=== PATIENT | female | born 1990 | race Hispanic/Latino ===

== ENCOUNTER 2017-10-18 02:30 | Inpatient (IN) | payer MEDICAID, SELFPAY ==
[2017-10-18] MEDS ORDERED: Ondansetron HCl/PF 4 MG/2 ML Vial ONE (03:58)
[2017-10-18 04:14] LABS: Hemoglobin 15.5 g/dL (12.0-16.0); Mean Corpuscular HGB CONC 33.8 g/dL (32.0-36.0); Mean Corpuscular Hemoglobin 31.8 pg (27.0-31.0); Mean Corpuscular Volume 94.1 fl (81.0-99.0); Mean Platelet Volume 8.8 fL (7.4-10.4); Platelet Count 270 thou/uL (130-400); RBC Distribution Width 11.2 % (11.5-14.5); Red Blood Cell (RBC) Count 4.88 mill/uL (4.20-5.40); White Blood Cell (WBC) Count 21.1 thou/uL (4.8-10.8)
[2017-10-18 04:29] LABS: ALT (SGPT) 25 U/L (8-55); AST (SGOT) 15 U/L (5-34); Alkaline Phosphatase 54 U/L (40-150); Anion Gap 15 mmol/L (10-20); BUN (Urea Nitrogen) 12 mg/dL (7.0-18.7); Band 15 % (5-11); Bilirubin, Total 1.3 mg/dL (0.2-1.2); CK (CPK) 63 U/L (29-168); Calc. Creatinine Clearance 0 mL/min (70-130); Calcium 10.1 mg/dL (7.8-10.44); Carbon Dioxide 26 mmol/L (22-29); Chloride 99 mmol/L (98-107); Estimated GFR-MDRD 89; Glucose 118 mg/dL (70-105); Lipase 8 U/L (8-78); Lymphocytes 2 % (21-51); MDiff Complete? YES; Monocytes 2 % (0-10); Neutrophil 81 % (42-75); Potassium 3.5 mmol/L (3.5-5.1); Sodium 136 mmol/L (136-145)
[2017-10-18 04:43] LABS: Bilirubin Negative (Negative); Blood, Urine Negative (Negative); Clarity CLEAR (Clear); Glucose, Urine (Dipstick) Negative (Negative); Leukocyte Negative (Negative); Nitrite Negative (Negative); Protein, Urine (Dipstick) 30 mg/dL (Neg-Trace); Specific Gravity, Urine 1.022 (1.002-1.036); pH, Urine 8.5 (5.0-9.0)
[2017-10-18 04:45] LABS: Pregnancy Test - Urine (BHCG) Negative (Negative); Pregu Control Background? CLEAR/WHITE (CLR/WHITE); Pregu Control Bar Appear? YES (CONTROL BAR); Specific Gravity 1.022 (1.002-1.036)
[2017-10-18 04:46] LABS: Bacteria/HPF Rare-Few HPF (None Seen); Hyaline Casts/LPF 0-3 HYALINE CAST LPF (0-3 Hyaline); RBC/HPF 0-3 HPF (0-3); Squamous Epithelial 0-3 HPF (0-3); WBC/HPF 0-3 HPF (0-3)
[2017-10-18] MEDS ORDERED: Acetaminophen 325 MG TAB ONE (07:10)
--- NOTE | 2017-10-18 08:06 | RAD ---
PORTABLE CHEST 1 VIEW: Date: 10/18/17 Time: 0346 hours HISTORY: Cough. FINDINGS: The heart size is normal. The lungs are expanded without focal areas of consolidation, pneumothorax, or pleural effusions. IMPRESSION: No acute process. POS: [facility]
[2017-10-18] MEDS ORDERED: Ondansetron ODT 4 MG TAB SL PRN (09:29)
[2017-10-18] MEDS ORDERED: Acetaminophen 325 MG TAB PO PRN (09:29)
[2017-10-18] MEDS ORDERED: Ondansetron HCl/PF 4 MG/2 ML Vial IVP PRN ×2 (09:29→11:33)
[2017-10-18 11:33] VITALS: BMI 23.6
[2017-10-18] MEDS ORDERED: Bisacodyl 5 MG TAB PO PRN (11:33)
[2017-10-18] MEDS ORDERED: Acetaminophen 650 MG Suppository PR PRN (11:33)
[2017-10-18] MEDS ORDERED: cefTRIAXone\\ROCEPHIN 1 GM in Sodium Chloride 0.9% 100 ML IVPB SCH (11:45)
--- NOTE | 2017-10-18 11:59 | HP ---
PRIMARY CARE PROVIDER: [facility]. CHIEF COMPLAINT: Body aches and fatigue. HISTORY OF PRESENT ILLNESS: Ms. Rosa is a pleasant 27-year-old lady who was seen at [facility] on 10/18/2017. She reports that she was doing well until yesterday. She denies any sick contacts. Yesterday, she started having body aches as well as a headache. She also report s feeling generalized weakness. She is unsure if she had fever. She reports occasional cough that i s nonproductive. She also reports that she has had multiple episodes of vomiting yesterday. Vomitin g resolved after she came to the emergency room. She has been unable to have any oral intake seconda ry to vomiting. She denies any dysuria or increased frequency of urination. She denies any abdomina l pain. REVIEW OF SYSTEMS: The following complete review of systems was negative, unless otherwise mentioned in the HPI or below: Constitutional: Weight loss or gain, ability to conduct usual activities. Skin: Rash, itching. Eyes: Double vision, pain. ENT/Mouth: Nose bleeding, neck stiffness, pain, tenderness. Cardiovascular: Palpitations, dyspnea on exertion, orthopnea. Respiratory: Shortness of breath, wheezing, cough, hemoptysis, fever or night sweats. Gastrointestinal: Poor appetite, abdominal pain, heartburn, nausea, vomiting, constipation, or diarr hea. Genitourinary: Urgency, frequency, dysuria, nocturia. Musculoskeletal: Pain, swelling. Neurologic/Psychiatric: Anxiety, depression. Allergy/Immunologic: Skin rash, bleeding tendency. MEDICAL HISTORY: None. SURGICAL HISTORY: None. SOCIAL HISTORY: Patient denies tobacco use, alcohol use or recreational drug use. FAMILY HISTORY: No family history of coronary artery disease. ALLERGIES: No known drug allergies. CURRENT MEDICATIONS: None. PHYSICAL EXAMINATION: GENERAL: On examination, Ms. Rosa is awake and alert, not in acute distress. VITAL SIGNS: Blood pressure is 110/75, pulse is 111. She is breathing at rate of 17 and saturating 98% on room air. Her T-max in the emergency room was 101.4 degrees Fahrenheit. EYES: No scleral icterus. No conjunctival pallor. ENT: Dry mucosal membranes, no oropharyngeal erythema or exudates. NECK: Supple, nontender, normal range of movement. Trachea is midline. RESPIRATORY: Accessory muscles of breathing are not active. Chest wall movements are symmetrical bi laterally. LUNGS: Clear to auscultation without wheeze, rhonchi or crepitations. CARDIOVASCULAR: S1 and S2 are heard, tachycardic and regular. Peripheral pulses are palpable. No c arotid bruit, no pericardial rub. ABDOMEN: Soft, nontender, bowel sounds are heard, no hepatomegaly, no splenomegaly. NEUROLOGIC: Cranial nerves II-XII are intact. Deep tendon reflexes are 2+. MUSCULOSKELETAL: Power is 5/5 in all 4 extremities. Normal range of movement at all major extremity joints. SKIN: No rashes or subcutaneous nodules. LYMPHATIC: No cervical lymphadenopathy. PSYCHIATRIC: Normal mood, normal affect, patient is oriented to person, place, and time. IMAGING DATA AND LABORATORY DATA: Ms. Rosa's labs and investigations were reviewed. I reviewed h er electrocardiogram, which shows sinus tachycardia, no ST changes to suggest an acute coronary syndr ome. I also reviewed her chest x-ray, which does not show any pulmonary infiltrates. She has leukoc ytosis with 21,000 white cells, of which 81% are neutrophils and 15% are bands, normal hemoglobin, no rmal platelet count, elevated total bilirubin of 1.3, otherwise unremarkable comprehensive metabolic profile, normal TSH, normal lipase and urinalysis that is positive for protein and trace ketones. ASSESSMENT AND PLAN: Ms. Rosa is a pleasant 27-year-old lady who was seen at [facility] on 10/18/2017. Her problem list includes: 1. Sepsis: She presents with findings consistent with sepsis, likely secondary to an upper respirat ory tract infection, although flu-like illness causing nausea and vomiting cannot be ruled out at thi s time. I should note that her influenza screen is negative. She will be admitted to the hospital f or further management. Blood cultures are pending at this time. I will start her on empiric antibio tics in the form of ceftriaxone and follow cultures. 2. Dehydration: The patient is clinically dehydrated, likely secondary to vomiting. We will provid e intravenous hydration. 3. Abnormal liver function test: Isolated mild elevation of total bilirubin. We will recheck liver function tests. 4. Generalized weakness: Likely secondary to dehydration. We will provide hydration and reassess. Many thanks for allowing me to participate in your patient's care. Please feel free to contact me wi th any questions or concerns. LEVEL OF RISK: High. LEVEL OF COMPLEXITY: High.
[2017-10-18] MEDS: Sodium Chloride 0.9% 1,000 ML IV SCH ×2 (14:03→21:43)
[2017-10-18] MEDS: cefTRIAXone\\ROCEPHIN 1 GM, Syringe 0.4 ML in Sterile Water 9.6 ML SLOW IVP SCH (14:04)
[2017-10-18] MEDS: Acetaminophen 325 MG TAB PO PRN (14:17)
[2017-10-19] MEDS: Acetaminophen 325 MG TAB PO PRN (00:04)
[2017-10-19 04:50] LABS: #Lymphocytes 1.3 thou/uL (1.20-3.40); #Monocytes 0.7 thou/uL (0.11-0.59); #Neutrophils 7.8 thou/uL (1.40-6.50); %Basophils 0.1 % (0.0-1.0); %Eosinophils 0.5 % (0.0-10.0); %Lymphocytes 13.5 % (21.0-51.0); %Monocytes 7.1 % (0.0-10.0); %Neutrophils 78.8 % (42.0-75.0); Hemoglobin 12.5 g/dL (12.0-16.0); Mean Corpuscular Hemoglobin 32.6 pg (27.0-31.0); Mean Corpuscular Volume 95.9 fl (81.0-99.0); Mean Platelet Volume 8.7 fL (7.4-10.4); Platelet Count 209 thou/uL (130-400); RBC Distribution Width 11.3 % (11.5-14.5); Red Blood Cell (RBC) Count 3.83 mill/uL (4.20-5.40); White Blood Cell (WBC) Count 9.9 thou/uL (4.8-10.8)
[2017-10-19 06:20] LABS: ALT (SGPT) 19 U/L (8-55); AST (SGOT) 15 U/L (5-34); Albumin 3.3 g/dL (3.5-5.0); Alkaline Phosphatase 38 U/L (40-150); Anion Gap 6 mmol/L (10-20); BUN (Urea Nitrogen) 6 mg/dL (7.0-18.7); Bilirubin, Direct 0.2 mg/dL (0.1-0.3); Bilirubin, Total 0.4 mg/dL (0.2-1.2); Calc. Creatinine Clearance 118 mL/min (70-130); Calcium 8.3 mg/dL (7.8-10.44); Carbon Dioxide 27 mmol/L (22-29); Chloride 109 mmol/L (98-107); Estimated GFR-MDRD Greater than 90; Glucose 89 mg/dL (70-105); Potassium 4.1 mmol/L (3.5-5.1); Sodium 138 mmol/L (136-145)
[2017-10-19] MEDS: Enoxaparin Sodium 40 MG/0.4 ML SYRINGE SC SCH (08:29)
[2017-10-19] MEDS: Sodium Chloride 0.9% 1,000 ML IV SCH ×2 (08:35→17:46)
[2017-10-19] MEDS ORDERED: FLU VACC QS2017-18 36 mo. & older 0.5 ML SYRINGE IM ONE (09:00)
[2017-10-19] MEDS: cefTRIAXone\\ROCEPHIN 1 GM, Syringe 0.4 ML in Sterile Water 9.6 ML SLOW IVP SCH (14:01)
--- NOTE | 2017-10-19 15:47 | PDOC.PN ---
- Subjective Encounter Start Date: 10/19/17 Encounter Start Time: 15:45 CC: Fever sub: pt denies dyspnea - Objective Vital Signs & Weight: Vital Signs (12 hours) Temp Pulse Resp BP Pulse Ox 10/19/17 11:42 98.2 F 94 16 104/69 98 10/19/17 08:11 98.1 F 89 16 111/73 97 10/19/17 08:00 98.1 F 89 16 97 10/19/17 04:00 97.6 F 80 16 103/72 99 Result Diagrams: 10/19/17 04:13 10/19/17 04:13 Phys Exam - Physical Examination Constitutional: NAD HEENT: moist MMs Neck: no JVD Respiratory: no wheezing, no rales, no rhonchi Cardiovascular: RRR, no significant murmur, no rub Gastrointestinal: soft, non-tender, no distention Musculoskeletal: no edema Psychiatric: normal affect Skin: no rash Dx/Plan - Plan Pt is 27 yrs old female 1. Sepsis 2. Fever resolved 3. Weakness 4. Hypovolemia Plan: 1. Continue IV rocephin. WBC count improved Repeat CBC in am 2. Cultures no growth so far. Monitor for now 3. Continue iv fluids BP improved Ok to dc pt home in am if cultures negative and if repeat CBC count stable.
[2017-10-20] MEDS: Sodium Chloride 0.9% 1,000 ML IV SCH (03:17)
[2017-10-20 06:02] LABS: #Basophils 0.1 thou/uL (0.0-0.2); #Eosinphils 0.1 thou/uL (0.0-0.7); #Lymphocytes 1.9 thou/uL (1.20-3.40); #Monocytes 0.6 thou/uL (0.11-0.59); #Neutrophils 3.9 thou/uL (1.40-6.50); %Basophils 1.2 % (0.0-1.0); %Eosinophils 1.6 % (0.0-10.0); %Lymphocytes 28.6 % (21.0-51.0); %Monocytes 9.3 % (0.0-10.0); %Neutrophils 59.4 % (42.0-75.0); Hemoglobin 12.4 g/dL (12.0-16.0); Mean Corpuscular HGB CONC 32.6 g/dL (32.0-36.0); Mean Corpuscular Hemoglobin 31.4 pg (27.0-31.0); Mean Corpuscular Volume 96.4 fl (81.0-99.0); Mean Platelet Volume 8.9 fL (7.4-10.4); Platelet Count 220 thou/uL (130-400); RBC Distribution Width 11.3 % (11.5-14.5); Red Blood Cell (RBC) Count 3.94 mill/uL (4.20-5.40); White Blood Cell (WBC) Count 6.6 thou/uL (4.8-10.8)
[2017-10-20 06:16] LABS: Anion Gap 10 mmol/L (10-20); BUN (Urea Nitrogen) 6 mg/dL (7.0-18.7); Calc. Creatinine Clearance 122 mL/min (70-130); Calcium 8.7 mg/dL (7.8-10.44); Carbon Dioxide 26 mmol/L (22-29); Chloride 108 mmol/L (98-107); Estimated GFR-MDRD Greater than 90; Glucose 95 mg/dL (70-105); Potassium 4.2 mmol/L (3.5-5.1); Sodium 140 mmol/L (136-145)
[2017-10-20] MEDS: Enoxaparin Sodium 40 MG/0.4 ML SYRINGE SC SCH (09:10)
[2017-10-20 12:11] VITALS: BP 134/84; TEMP 98.2
--- NOTE | 2017-10-20 18:10 | DIS ---
DATE OF ADMISSION: 10/18/2017 DATE OF DISCHARGE: 10/20/2017 TRANSFER OF CARE PRIMARY CARE PROVIDER: Steven Cooper. DISPOSITION: Discharged home. FINAL DIAGNOSES: 1. Systemic inflammatory response syndrome. 2. Dehydration. DISCHARGE MEDICATION: Omnicef 600 mg daily x4 days. ALLERGIES: None pending at the time of discharge. Blood and urine cultures are no growth. Blood cultures had no growth at 0848 hours. HOSPITAL COURSE: The patient was admitted to the [facility] through [facility] department. The patient had body aches and fatigue. No past medical history. She had an elevat ed white count of 21,000 of which 81% neutrophils and 15% bands. Urinalysis revealed no white cells. Chest x-ray, no pulmonary infiltrates. Blood cultures were drawn. She was started on IV antibioti cs, Rocephin 1 gram daily. On day 2, her white count was 9.9, today at 6.6. Her comprehensive metab olic profile and basic metabolic profile were all fairly unremarkable. She did have a total bilirubi n of 1.3, this is not unusual with stress, which came down to 0.4. As mentioned before, blood cultur es were negative at 48 hours. She felt fine. She has been afebrile since admission. She was initia lly tachycardic. This has resolved. Blood pressure is stable. Cardiorespiratory exam is normal. S he is being discharged home. Without a source for her infection, I have decided to discharge her on 4 more days of Omnicef 600 mg a day after having had 3 days of Rocephin IV. She has been asked to fo llow up with her primary care provider at [facility] within the week.
--- NOTE | 2017-10-26 13:37 | PQF ---
TIFFANY KAUFMAN COUNCIL C MD [id number] CLINICAL DOCUMENTATION CLARIFICATION FORM: POST DISCHARGE Addendum to original discharge summary date: ____ Late entry note date: __ TIFFANY KAUFMAN [id number] LEATHA MARIN MD PLEASE DOCUMENT YOUR RESPONSE BELOW PLEASE FAX RESPONSE BACK TO YOUR INPUT IS NEEDED TO CORRECTLY CODE A DIAGNOSIS FOR YOUR PATIENT. DATE: 10/26/2017 ATTN: DR. MARIN Please exercise your independent, professional judgment in responding to the clarification form. Clinical indicators are provided on the bottom of this form for your review Please check appropriate box(s) to clarify if the following diagnosis has been ruled in our ruled out: SEPSIS (CDI/Coding list diagnosis here) [ ] Ruled in diagnosis [ ] Continue to treat [ ] Resolved [ x] Ruled out diagnosis [ ] Cannot rule out diagnosis [ ] Other diagnosis [ ] Unable to determine In addition, please specify: Present on Admission (POA): [ ] Yes [ ] No [x ] Unable to determine For continuity of documentation, please document condition throughout progress notes and discharge summary. Thank You. CLINICAL INDICATORS - SIGNS / SYMPTOMS / LABS: VITALS: BP 110/75, PULSE 111 TEMP 101.4 LAB: LEUKOCYTOSIS W/ 21,000 WHITE CELLS, OF WHICH 81% ARE NEUTROPHILS AND 15% ARE BANDS H&P: SEPSIS, BLOOD CULTURES PENDING 10/19 PN: SEPSIS, CULTURES NO GROWTH SO FAR DS: SYSTEMIC INFLAMMATORY RESPONSE SYNDROME (SIRS) BLOOD AND URINE CULTURES ARE NO GROWTH, BLOOD CULTURES HAD NO GROWTH AT 0848 HOURS RISK FACTORS: DEHYDRATION TREATMENTS: IV ANTIBIOTICS (This form is maintained as a part of the permanent medical record) 2014 [employer]. All Rights Reserved Amanda Lam CCS, FISH PROCESSOR-H [email or web address] [phone] MTDD
== END 2017-10-20 12:22 | disposition home or self-care (01) | DRG 872 ==
LOC: ERS 02:30 → T4-A 07:03
PROVIDERS: ADMIT Internal Medicine; ATTEND Internal Medicine
DX: R65.10 Systemic inflammatory response syndrome (SIRS) of non-infectious origin without acute organ dysfunction (principal); E86.0 Dehydration; Z23 Encounter for immunization
CPT/HCPCS: 36415; 71045; 80048; 80053; 80076; 81003; 81015; 81025; 82550; 83690; 84443; 85025; 87040; 90471; 90682; 93005; 96361; 96374; A4216; G0008; J0696; J1650; J2405; Q2036

== ENCOUNTER 2018-06-07 13:13 | Outpatient (CLI) | payer OTHER ==
--- NOTE | 2018-06-07 15:45 | ULT ---
OB ULTRASOUND: 06/07/18 HISTORY: Size and dates, anatomy. Real time imaging of the pelvis shows a single viable intrauterine which is in a breech pre sentation. The placenta is posterior in location. No signs of previa. Cervical canal length is approx imately 5 cm. The amniotic fluid is adequate for this stage of . Amniotic fluid index was 9. 2 but visually the fluid appears adequate. Review of anatomy shows normal head, cerebellum, four chamber heart , stomach, kidneys, cord in sertion, bladder and spine, upper and lower extremities and three vessel cord also appear unremarkabl e. measurements are as follows: BPD 5.1 cm 21 weeks, 4 days Head circumference 19.2 cm 21 weeks, 4 days Abdominal circumference 17.4 cm 22 weeks, 3 days Femur length 3.6 cm 21 weeks, 4 days IMPRESSION: 1. Single viable intrauterine in a breech presentation. Overall measurements correspon ding to a gestational age of 21 weeks, 6 days. Estimated date of delivery 10/12/18. 2. Placenta which is more posterior in location. No signs of previa. POS: [facility]
== END 2018-06-07 13:14 | disposition home or self-care (01) ==
LOC: BICULT 13:13
PROVIDERS: ATTEND Family Medicine
DX: Z34.92 Encounter for supervision of normal pregnancy, unspecified, second trimester (principal); Z3A.21 21 weeks gestation of pregnancy
CPT/HCPCS: 76805

== ENCOUNTER 2018-10-03 14:33 | Inpatient (IN) | payer MEDICAID, OTHER, SELFPAY ==
[2018-10-03 15:08] VITALS: BMI 28.1
[2018-10-03] MEDS ORDERED: NS / Oxytocin 40 units/1000ml 1,000 ML ONE (15:28)
[2018-10-03] MEDS ORDERED: Lidocaine 1% (PF) 30 ML VIAL ONE (15:29)
[2018-10-03] MEDS ORDERED: Promethazine HCl 25 MG/ML VIAL IM PRN ×2 (16:14→18:28)
[2018-10-03] MEDS ORDERED: Ondansetron PF 4 MG/2 ML Vial IVP PRN ×2 (16:14→18:28)
[2018-10-03] MEDS ORDERED: Lactated Ringer's 1,000 ML IV SCH ×3 (16:15→18:28)
[2018-10-03 17:00] LABS: Hemoglobin 10.8 g/dL (12.0-16.0); Mean Corpuscular HGB CONC 32.8 g/dL (32.0-36.0); Mean Corpuscular Hemoglobin 27.6 pg (27.0-31.0); Mean Corpuscular Volume 84.1 fL (78.0-98.0); Platelet Count 206 thou/uL (130-400); RBC Distribution Width 13.2 % (11.5-14.5); Red Blood Cell (RBC) Count 3.92 mill/uL (4.20-5.40); White Blood Cell (WBC) Count 10.6 thou/uL (4.8-10.8)
[2018-10-03] MEDS ORDERED: NS / Oxytocin 40 units/1000ml 1,000 ML IV SCH (17:15)
[2018-10-03 17:27] LABS: Syphilis Antibody Nonreactive (Nonreactive); Syphilis Antibody Index 0.12 S/CO (<1.00 Non-Reactive)
[2018-10-03 17:54] LABS: Hep B Surf Ag Non-Reactive S/CO (NonReactive)
[2018-10-03] MEDS ORDERED: Lidocaine 1% (PF) 30 ML VIAL SC PRN (18:28)
[2018-10-03] MEDS ORDERED: HYDROcodone/Acetaminophen 5/325 mg Tablet PO PRN ×2 (18:28)
[2018-10-03] MEDS ORDERED: Butorphanol Tartrate 1 MG/ML VIAL SLOW IVP PRN (18:28)
[2018-10-03] MEDS ORDERED: Ibuprofen 800 MG TAB PO PRN (18:28)
[2018-10-03] MEDS ORDERED: NS / Oxytocin 40 units/1000ml 1,000 ML IV PRN (18:28)
[2018-10-04] MEDS ORDERED: Benzocaine/Menthol 20-0.5% 60 ML CAN TOP PRN (08:09)
[2018-10-04] MEDS ORDERED: Milk Of Magnesia 30 ML UDCUP PO PRN (08:09)
[2018-10-04] MEDS ORDERED: Bisacodyl 10 MG SUPP PR PRN (08:09)
[2018-10-04] MEDS ORDERED: HYDROcodone/Acetaminophen 5/325 mg Tablet PO PRN (08:09)
[2018-10-04] MEDS ORDERED: NS / Oxytocin 40 units/1000ml 1,000 ML IV SCH (08:15)
[2018-10-04] MEDS ORDERED: Docusate Calcium (SURFAK) 240 MG CAP PO SCH (09:00)
--- NOTE | 2018-10-04 13:31 | PDOC.PP ---
Post Progress Note Post Day #: 1 Subjective: No complaints. Bleeding minimal. well. No pain. PO intake tolerated: yes Flatus: yes Ambulation: yes Vital Signs (12 hours) Temp Pulse Resp BP Pulse Ox 10/04/18 12:16 98.5 F 80 20 118/70 10/04/18 08:25 98.3 F 55 L 20 119/72 98 10/04/18 03:55 98.4 F 85 18 113/67 Weight Weight 154 lb - Physical Examination General: NAD Cardiovascular: no m/r/g, RRR Respiratory: clear to auscultation bilaterally, non-labored breathing Abdominal: + bowel sounds, lochia, no distention, appropriately TTP Result Diagrams: 10/03/18 15:25 Additional Labs: Post Labs Blood Type A POSITIVE 10/03/18 15:25 Hep Bs Antigen Non-Reactive S/CO (NonReactive) 10/03/18 15:25 (1) Normal vaginal delivery Code(s): O80 - ENCOUNTER FOR FULL-TERM UNCOMPLICATED DELIVERY Status: Acute - Assessment/Plan Routine PP care D/C home later this evening F/U with me in 6 weeks.
[2018-10-04] MEDS ORDERED: Ibuprofen 800 MG TAB PO SCH (14:00)
[2018-10-04] MEDS ORDERED: Ferrous Sulfate 325 MG TAB PO SCH (17:00)
[2018-10-04 17:38] VITALS: BP 123/79; TEMP 98.1
--- NOTE | 2018-10-04 20:10 | OP ---
DATE OF PROCEDURE: 10/03/2018 PREOPERATIVE DIAGNOSIS: Term intrauterine in labor. POSTOPERATIVE DIAGNOSIS: Term intrauterine in labor. PROCEDURE PERFORMED: Normal spontaneous vaginal delivery and repair of a first-degree laceration. BRIEF DELIVERY SUMMARY: This is a 28-year-old G3, now P3, who presented in active labor. She progressed quickly to complete and pushing. She delivered a live female infant head away. Mouth and nares were bulb suctioned at the perineum. There was no nuchal cord. Shoulders and body easily followed and the infant was placed on mother's abdomen. Infant Apgars were 9 at 1 minute and 9 at 5 minutes. The umbilical cord was doubly clamped and cut, and cord blood was collected for analysis. Placenta delivered spontaneously and intact with a 3-vessel umbilical cord. Uterine fundus was firm following evacuation of the placenta and Pitocin was hanging in the IV. There was a first-degree perineal laceration, which was repaired in standard running fashion using 2-0 Vicryl suture under local anesthesia with excellent hemostasis. Mom and baby were left with the nurse in excellent condition attempting to breastfeed. Job ID: [id number]
== END 2018-10-04 18:05 | disposition home or self-care (01) | DRG 807 ==
LOC: L&D/OP 14:33 → L&D 15:22 → 3SW 21:33
PROVIDERS: ADMIT Family Medicine; ATTEND Family Medicine
PROC: 10E0XZZ Delivery of Products of Conception, External Approach (ICD-10-PCS; principal; 2018-10-03)
PROC: 0HQ9XZZ Repair Perineum Skin, External Approach (ICD-10-PCS; 2018-10-03)
DX: O70.0 First degree perineal laceration during delivery (principal); Z37.0 Single live birth; Z3A.38 38 weeks gestation of pregnancy
CPT/HCPCS: 85027; 86780; 86850; 86900; 86901; 87340; 99285; J2001

== ENCOUNTER 2022-10-10 07:44 | Emergency (ER) | payer MEDICAID, OTHER, SELFPAY ==
[2022-10-10 08:19] LABS: #Basophils 0.1 thou/uL (0.0-0.2); #Eosinphils 0.1 thou/uL (0.0-0.7); #Lymphocytes 2.1 thou/uL (1.20-3.40); #Monocytes 0.4 thou/uL (0.11-0.59); %Basophils 0.7 % (0.0-1.0); %Lymphocytes 21.3 % (21.0-51.0); %Monocytes 4.3 % (0.0-10.0); %Neutrophils 72.7 % (42.0-75.0); Hemoglobin 14.7 g/dL (12.0-16.0); Mean Corpuscular HGB CONC 34.6 g/dL (32.0-36.0); Mean Corpuscular Volume 95.2 fl (78.0-98.0); Mean Platelet Volume 8.1 fL (7.4-10.4); Platelet Count 255 10x3/uL (130-400); RBC Distribution Width 11.4 % (11.5-14.5); Red Blood Cell (RBC) Count 4.46 mill/uL (4.20-5.40); White Blood Cell (WBC) Count 9.7 10x3/uL (4.8-10.8)
[2022-10-10 08:53] LABS: Bacteria/HPF None Seen HPF (None Seen); Bilirubin Negative (Negative); Blood, Urine 3+ (Negative); Clarity Clear (Clear); Glucose, Urine (Dipstick) Normal (Negative); Ketone, Urine Negative (Negative); Leukocyte 25 Leu/uL (Negative); Nitrite Negative (Negative); Protein, Urine (Dipstick) Negative (Neg-Trace); RBC/HPF Greater than 50 HPF (0-3); Specific Gravity, Urine 1.015 (1.002-1.036); Squamous Epithelial None Seen HPF (0-3); Urobilinogen Normal mg/dL (Less than 2); WBC/HPF 0-3 HPF (0-3)
== END 2022-10-10 11:51 | disposition home or self-care (01) ==
LOC: ERS 07:44
DX: O26.851 Spotting complicating pregnancy, first trimester (principal); Z3A.12 12 weeks gestation of pregnancy
CPT/HCPCS: 36415; 76856; 81003; 81015; 84702; 85025; 86900; 86901; 93976